=== PATIENT | female | born 1980 ===

== ENCOUNTER 2019-04-17 11:51 | Outpatient (REF) | payer BC, SELFPAY ==
--- NOTE | 2019-04-17 09:30 | PAPFT_PTH ---
PATIENT: KACIE CAMACHO LOC: [id number] U#:[id number] AGE/SX: 38/F ROOM: RE04/17/[address]: Jeni Reddy : 1980 BED: DIS: 04/17/2019 SPEC #: [id number] RECD: 04/19/19 13:06 STATUS: DAVID REQ #: [id number] FANTA: 04/17/19 09:[address]: Jeni Reddy DEPT: [facility] Cytology RECD BY: Cris Helms Tissues: 1 - CX/ENDOCX FOR PAP SMEARS Procedures: PAP THIN PREP/[facility] Screening HPV DNA PROBE Comments: [id number]
== END 2019-04-17 12:11 ==
LOC: NCHCN 11:51
PROVIDERS: PCP Family Medicine; Visit Provider Family Medicine
DX: Z00.00 Encounter for general adult medical examination without abnormal findings (principal); Z12.4 Encounter for screening for malignant neoplasm of cervix; Z11.51 Encounter for screening for human papillomavirus (HPV)
CPT/HCPCS: 88142; 87624